=== PATIENT | female | born 1990 | race African-American/Black ===

== ENCOUNTER 2016-11-20 17:17 | Emergency (ER) | payer OTHER, SELFPAY ==
--- NOTE | 2016-11-20 17:55 | EDDOCDS ---
Physician Documentation [facility] Name: Gale Moore Age: 26 yrs Sex: Female : 1990 Arrival Date: 11/20/2016 Time: 17:17 Bed I8 / 16 Private MD: NO PRIMARY PHYSICIAN, . Disposition: 11/20/16 17:39 Discharged to Home/Self Care. Impression: Acute pharyngitis. - Condition is Stable. - Discharge Instructions: Pharyngitis, Salt Water Gargle. - Prescriptions for penicillin V potassium 500 mg Oral Tablet - take 1 tablet by ORAL route 4 times per day for 10 days; 40 tablet. - Medication Reconciliation, Local Pharmacy Hours form. - Follow up: [facility]; When: Call to arrange an appointment; Reason: Continuance of care. - Problem is new. - Symptoms are unchanged. Historical: - Allergies: no known allergies; - Home Meds: 1. none - PMHx: none; - PSHx: none; - Social history: Smoking status: Patient states was never smoker of tobacco. No barriers to communication noted, The patient speaks fluent Italian. - Family history: Not pertinent. - : The pt / caregiver states he / she is not on anticoagulants. Home medication list is obtained from the patient. - Exposure Risk Screening:: None identified. 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 7 in. (170.18 cm) (R); Pain 7/10; 17:19 Body Mass Index 34.46 (99.79 kg, 170.18 cm) gr2 MDM: 17:23 Strep Screen, Nursing ordered. dt4 17:47 Financial registration complete. gb 17:49 ON LICENSE OF [facility] Payment Agreement was scanned into [employer] and attached to record. gb Signatures: Cherelle Wang, Reg Reg gb Hima Li, MARKING CLERK MARKING CLERK Gil Samuel,RN RN jose albertob Christina Sebastian, PA-C PA-C dt4 No Iyer RN RN ms18 The chart was reviewed and I authenticate all verbal orders and agree with the evaluation and treatment provided.Attachments: 17:49 [facility] [place] Payment Agreement gb MTDD
--- NOTE | 2016-11-20 17:55 | EDDOCDS ---
Nurse's Notes [facility] Name: Gale Moore Age: 26 yrs Sex: Female : 1990 Arrival Date: 11/20/2016 Time: 17:17 Bed I8 / 16 Private MD: NO PRIMARY PHYSICIAN, . Diagnosis: Acute pharyngitis Presentation: 11/20 17:22 Presenting complaint: Patient states: that she noticed white patches on her tonsils ms18 Friday and states that she has a sore throat that hasn't gotten any better. Risk factors: Stridor is not present. Drooling is not present. Shortness of breath is not present. Cellulitis is not present. Adult Sepsis Screening: The patient does not have new or worsening altered mentation. Patient's respiratory rate is less than 22. Systolic blood pressure is greater than 100. Patient has a qSOFA score of 0- Negative Sepsis Screen. Suicide/Homicide risk assessment- the patient denies having any suicidal and/or homicidal ideations and does not present with any other emotional, behavioral or mental health complaints. 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 Transition of care: patient was not received from another setting of care. 17:22 Acuity: LEEANNA Level 4 ms18 17:22 Method Of Arrival: Walkin/Carried/Asstd ms18 Triage Assessment: 17:25 General: Appears in no apparent distress, comfortable, obese, Behavior is appropriate ms18 for age, cooperative. Pain: Location: throat Pain currently is 7 out of 10 on a pain scale. HIV screening NA for this visit Offered previously. Neurological: No deficits noted. EENT: Reports sore throat. Respiratory: No deficits noted. Derm: Skin is pink, warm & dry. normal. 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 none - PMHx: none; - PSHx: none; - Social history: Smoking status: Patient states was never smoker of tobacco. No barriers to communication noted, The patient speaks fluent Syriac. - Family history: Not pertinent. - : The pt / caregiver states he / she is not on anticoagulants. Home medication list is obtained from the patient. - Exposure Risk Screening:: None identified. Screenin:53 Screening information is obtained from the patient. Fall risk: No risks identified. jmb Assistance ADL's: requires no assistance with activities of daily living. Abuse/DV Screen: The patient / caregiver reports he/she is: not in a situation that causes fear, pain or injury. Nutritional screening: No deficits noted. Advance Directives: Currently, there is no health care proxy. There is no active DNR order. There is no living will. There is no Power of Political Aide. home support is adequate. Assessment: 17:53 General: Patient instructed on discharge instructions. Patient asked if there were any jmb questions regarding discharge, patient stated no. Patient signed discharge instructions. Patient discharged in stable condition. . EENT: Throat is reddened. Respiratory: Airway is patent Respiratory effort is even, unlabored, Respiratory pattern is regular, symmetrical. Vital Signs: 17:19 BP 147 / 74; Pulse 78; Resp 18 S; Temp 97.3(O); Pulse Ox 100% on R/A; Weight 99.79 kg gr2 (R); Height 5 ft. 7 in. (170.18 cm) (R); Pain 7/10; 17:19 Body Mass Index 34.46 (99.79 kg, 170.18 cm) gr2 Vitals: 17:19 Log In Time: November 20, 2016 at 17:19. gr2 17:50 Strep Screen is obtained and tested: Positive. mlb1 ED Course: 17:18 Patient visited by Ingris Zelaya. gr2 17:18 NO PRIMARY PHYSICIAN, . is Private Physician. gr2 17:18 Patient moved to Waiting gr2 17:21 Patient visited by Ingris Zelaya. gr2 17:22 Patient moved to Pre RCE gr2 17:24 Triage Initiated ms18 17:28 [facility]. ke 17:28 Patient visited by Hima Li FNP. ke 17:28 Patient visited by Hima Li FNP. ke 17:28 Patient moved to I ms18 17:39 [facility] is Referral Physician. ke 17:49 [facility] Payment Agreement was scanned into [employer] and attached to record. gb 17:53 The patient / caregiver is instructed regarding the plan of care and ED course. jmb 17:53 No IV's were initiated during this patient's visit. No procedures done that require jmb assistance. Order Results: There are currently no results for this order. Outcome: 17:39 Discharge ordered by Provider. mulu 17:53 Discharge Assessment: Patient awake, alert and oriented x 3. No cognitive and/or jmb functional deficits noted. Patient verbalized understanding of disposition instructions. Patient awake and alert. obeys commands, Oriented to person, place and time. Patient verbalized understanding of disposition instructions. Patient has no functional deficits. patient administered narcotics - no. The following High Risk Discharge criteria are identified: None. Discharged to home ambulatory. Condition: stable Condition: improved. Discharge instructions given to patient, Instructed on discharge instructions, follow up and referral plans. medication usage, Demonstrated understanding of instructions, medications, Pt was receptive of discharge instructions/ teaching. Prescriptions given X 1. No special radiology studies were completed. Property sent home with patient. 17:55 Patient left the ED. jmb Signatures: Cherelle Wang, Reg Reg gb Hima Li, CSW CSW Avery Mazariegos RN RN mlb1 Ingris Zelaya2 Gil Watson,RN RN jose albertob No Iyer,RN RN ms18 AZIZA
--- NOTE | 2016-11-22 18:56 | EDDOCDS ---
Physician Documentation [facility] Name: Gale Moore Age: 26 yrs Sex: Female : 1990 Arrival Date: 11/20/2016 Time: 17:17 Bed I Private MD: NO PRIMARY PHYSICIAN, . Disposition: 11/20/16 17:39 Discharged to Home/Self Care. Impression: Acute pharyngitis. - Condition is Stable. - Discharge Instructions: Pharyngitis, Salt Water Gargle. - Prescriptions for penicillin V potassium 500 mg Oral Tablet - take 1 tablet by ORAL route 4 times per day for 10 days; 40 tablet. - Medication Reconciliation, Local Pharmacy Hours form. - Follow up: [facility]; When: Call to arrange an appointment; Reason: Continuance of care. - Problem is new. - Symptoms are unchanged. Historical: - Allergies: no known allergies; - Home Meds: 1. none - PMHx: none; - PSHx: none; - Social history: Smoking status: Patient states was never smoker of tobacco. No barriers to communication noted, The patient speaks fluent Bhutanese. - Family history: Not pertinent. - : The pt / caregiver states he / she is not on anticoagulants. Home medication list is obtained from the patient. - Exposure Risk Screening:: None identified. 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 7 in. (170.18 cm) (R); Pain 7/10; 17:19 Body Mass Index 34.46 (99.79 kg, 170.18 cm) gr2 MDM: 17:23 Strep Screen, Nursing ordered. dt4 17:47 Financial registration complete. gb 17:49 [facility] Payment Agreement was scanned into [employer] and attached to record. gb 11/21 10:39 T-Sheet-- Draft Copy was scanned into [employer] and attached to record. gb Signatures: Cherelle Wang, Reg Reg Hima Armstrong, COLLECTION AGENT COLLECTION AGENT Gil SamuelRN RN jmb Christina Sebastian PA-C PABrigette dt4 No Iyer RN RN ms18 The chart was reviewed and I authenticate all verbal orders and agree with the evaluation and treatment provided.Attachments: 11/20 17:49 [facility] Payment Agreement gb 11/21 10:39 T-Sheet-- Draft Copy gb Chart Complete MTDD
--- NOTE | 2016-11-22 18:56 | EDDOCDS ---
Physician Documentation [facility] Name: Gale Moore Age: 26 yrs Sex: Female : 1990 Arrival Date: 11/20/2016 Time: 17:17 Bed I Private MD: NO PRIMARY PHYSICIAN, . Disposition: 11/20/16 17:39 Discharged to Home/Self Care. Impression: Acute pharyngitis. - Condition is Stable. - Discharge Instructions: Pharyngitis, Salt Water Gargle. - Prescriptions for penicillin V potassium 500 mg Oral Tablet - take 1 tablet by ORAL route 4 times per day for 10 days; 40 tablet. - Medication Reconciliation, Local Pharmacy Hours form. - Follow up: [facility]; When: Call to arrange an appointment; Reason: Continuance of care. - Problem is new. - Symptoms are unchanged. Historical: - Allergies: no known allergies; - Home Meds: 1. none - PMHx: none; - PSHx: none; - Social history: Smoking status: Patient states was never smoker of tobacco. No barriers to communication noted, The patient speaks fluent Botswanan. - Family history: Not pertinent. - : The pt / caregiver states he / she is not on anticoagulants. Home medication list is obtained from the patient. - Exposure Risk Screening:: None identified. 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 7 in. (170.18 cm) (R); Pain 7/10; 17:19 Body Mass Index 34.46 (99.79 kg, 170.18 cm) gr2 MDM: 17:23 Strep Screen, Nursing ordered. dt4 17:47 Financial registration complete. gb 17:49 [facility] Payment Agreement was scanned into [employer] and attached to record. gb 11/21 10:39 T-Sheet-- Draft Copy was scanned into [employer] and attached to record. gb Signatures: Cherelle Wang, Reg Reg Hima Armstrong, DETECTIVE HOMICIDE SQUAD DETECTIVE HOMICIDE SQUAD Gil SamuelRN RN jmb Christina Sebastian PA-C PABrigette dt4 No Iyer RN RN ms18 The chart was reviewed and I authenticate all verbal orders and agree with the evaluation and treatment provided.Attachments: 11/20 17:49 [facility] Payment Agreement gb 11/21 10:39 T-Sheet-- Draft Copy gb Chart Complete MTDD
--- NOTE | 2016-11-22 18:56 | EDDOCDS ---
Nurse's Notes [facility] Name: Gale Moore Age: 26 yrs Sex: Female : 1990 Arrival Date: 11/20/2016 Time: 17:17 Bed I8 / 16 Private MD: NO PRIMARY PHYSICIAN, . Diagnosis: Acute pharyngitis Presentation: 11/20 17:22 Presenting complaint: Patient states: that she noticed white patches on her tonsils ms18 Friday and states that she has a sore throat that hasn't gotten any better. Risk factors: Stridor is not present. Drooling is not present. Shortness of breath is not present. Cellulitis is not present. Adult Sepsis Screening: The patient does not have new or worsening altered mentation. Patient's respiratory rate is less than 22. Systolic blood pressure is greater than 100. Patient has a qSOFA score of 0- Negative Sepsis Screen. Suicide/Homicide risk assessment- the patient denies having any suicidal and/or homicidal ideations and does not present with any other emotional, behavioral or mental health complaints. Status: Patient is not a statistical machine servicer or dependent. Transition of care: patient was not received from another setting of care. 17:22 Acuity: LEEANNA Level 4 ms18 17:22 Method Of Arrival: Walkin/Carried/Asstd ms18 Triage Assessment: 17:25 General: Appears in no apparent distress, comfortable, obese, Behavior is appropriate ms18 for age, cooperative. Pain: Location: throat Pain currently is 7 out of 10 on a pain scale. HIV screening NA for this visit Offered previously. Neurological: No deficits noted. EENT: Reports sore throat. Respiratory: No deficits noted. Derm: Skin is pink, warm & dry. normal. 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 none - PMHx: none; - PSHx: none; - Social history: Smoking status: Patient states was never smoker of tobacco. No barriers to communication noted, The patient speaks fluent Czech. - Family history: Not pertinent. - : The pt / caregiver states he / she is not on anticoagulants. Home medication list is obtained from the patient. - Exposure Risk Screening:: None identified. Screenin:53 Screening information is obtained from the patient. Fall risk: No risks identified. jmb Assistance ADL's: requires no assistance with activities of daily living. Abuse/DV Screen: The patient / caregiver reports he/she is: not in a situation that causes fear, pain or injury. Nutritional screening: No deficits noted. Advance Directives: Currently, there is no health care proxy. There is no active DNR order. There is no living will. There is no Power of Parts Counter Salesperson. home support is adequate. Assessment: 17:53 General: Patient instructed on discharge instructions. Patient asked if there were any jmb questions regarding discharge, patient stated no. Patient signed discharge instructions. Patient discharged in stable condition. . EENT: Throat is reddened. Respiratory: Airway is patent Respiratory effort is even, unlabored, Respiratory pattern is regular, symmetrical. Vital Signs: 17:19 BP 147 / 74; Pulse 78; Resp 18 S; Temp 97.3(O); Pulse Ox 100% on R/A; Weight 99.79 kg gr2 (R); Height 5 ft. 7 in. (170.18 cm) (R); Pain 7/10; 17:19 Body Mass Index 34.46 (99.79 kg, 170.18 cm) gr2 Vitals: 17:19 Log In Time: November 20, 2016 at 17:19. gr2 17:50 Strep Screen is obtained and tested: Positive. mlb1 ED Course: 17:18 Patient visited by Ingris Zelaya. gr2 17:18 NO PRIMARY PHYSICIAN, . is Private Physician. gr2 17:18 Patient moved to Waiting gr2 17:21 Patient visited by Ingris Zelaya. gr2 17:22 Patient moved to Pre RCE gr2 17:24 Triage Initiated ms18 17:28 [facility]. ke 17:28 Patient visited by Hima Li FNP. ke 17:28 Patient visited by Hima Li FNP. ke 17:28 Patient moved to I ms18 17:39 [facility] is Referral Physician. ke 17:49 [facility] Payment Agreement was scanned into [employer] and attached to record. gb 17:53 The patient / caregiver is instructed regarding the plan of care and ED course. jmb 17:53 No IV's were initiated during this patient's visit. No procedures done that require jmb assistance. 11/21 10:39 T-Sheet-- Draft Copy was scanned into [employer] and attached to record. Order Results: There are currently no results for this order. Outcome: 11/20 17:39 Discharge ordered by Provider. mulu 17:53 Discharge Assessment: Patient awake, alert and oriented x 3. No cognitive and/or jmb functional deficits noted. Patient verbalized understanding of disposition instructions. Patient awake and alert. obeys commands, Oriented to person, place and time. Patient verbalized understanding of disposition instructions. Patient has no functional deficits. patient administered narcotics - no. The following High Risk Discharge criteria are identified: None. Discharged to home ambulatory. Condition: stable Condition: improved. Discharge instructions given to patient, Instructed on discharge instructions, follow up and referral plans. medication usage, Demonstrated understanding of instructions, medications, Pt was receptive of discharge instructions/ teaching. Prescriptions given X 1. No special radiology studies were completed. Property sent home with patient. 17:55 Patient left the ED. jmb Signatures: Cherelle Wang, Reg Reg Hima Armstrong, MOLDER AUTOMOBILE CARPETS MOLDER AUTOMOBILE CARPETS Avery Mazareigos RN RN mlb1 Ingris Zelaya gr2 Gil Watson,RN RN No Lorenzo,RN RN ms18 Chart Complete MTDD
== END 2016-11-20 17:55 | disposition home or self-care (01) ==
LOC: M ED 17:17
DX: J02.9 Acute pharyngitis, unspecified (principal)